=== PATIENT | female | born 1960 | race Caucasian/White ===

== ENCOUNTER 2021-09-03 08:09 | Outpatient (REF) | payer BC, SELFPAY ==
[2021-09-03 08:57] LABS: Hematocrit 42.3 % (37.0-47.0); Hemoglobin 13.4 g/dl (12.0-16.0); Mean Corpuscular HGB Conc 31.7 g/dl (31.0-35.0); Mean Corpuscular Hemoglobin 28.1 pg (27.0-33.0); Mean Corpuscular Volume 88.7 fL (80.0-98.0); Mean Platelet Volume 9.5 fL (9.4-12.3); Platelet Count 278 X10*3/uL (160-400); Red Blood Count 4.77 X10*6/uL (4.20-5.50); Red Cell Distribution Width 12.6 % (11.0-16.0); White Blood Count 7.3 X10*3/uL (4.8-10.8)
[2021-09-03 09:16] LABS: Alanine Aminotransferase 21 U/L (0-31); Albumin Level 3.9 g/dL (3.5-5.0); Alkaline Phosphatase 96 U/L (39-117); Anion Gap 13 (12-20); Aspartate Amino Transferase 24 U/L (5-31); Bilirubin Total 0.5 mg/dL (0.0-1.0); Blood Urea Nitrogen 10 mg/dL (9-16); Calcium 8.9 mg/dL (8.4-10.2); Carbon Dioxide 26 mmol/L (22-29); Chloride 107 mmol/L (96-108); Cholesterol 215 mg/dL; Estimated Glomerular Filt Rate > 60; Glucose Fasting 103 mg/dL (60-99); HDL Cholesterol 41 mg/dL; LDL Cholesterol Calculated 124 mg/dl; Potassium 4.2 mmol/L (3.3-5.1); Sodium 142 mmol/L (135-145); Total Protein 7.3 g/dL (6.5-8.0); Triglycerides 254 mg/dL
[2021-09-03 09:40] LABS: TSH reflex Free T4 9.16 uIU/mL (0.32-4.0)
[2021-09-03 10:27] LABS: Free T4 (Free Thyroxine) 0.73 ng/dL (0.71-1.85)
== END 2021-09-03 08:10 | disposition home or self-care (01) ==
LOC: HO.LAB 08:09
PROVIDERS: PCP Hospitalist; Visit Provider Hospitalist
DX: Z00.00 Encounter for general adult medical examination without abnormal findings (principal)
CPT/HCPCS: 36415; 80053; 80061; 84439; 84443; 85027

== ENCOUNTER 2021-09-16 18:04 | Outpatient (REF) | payer BC, SELFPAY | END 2021-09-16 18:05 | disposition home or self-care (01) | LOC: HO.LNP 18:04 | PROVIDERS: Visit Provider Hospitalist | DX: R82.71 Bacteriuria (principal) | CPT/HCPCS: 87086 ==

== ENCOUNTER 2022-02-14 10:19 | Outpatient (REF) | payer BC, SELFPAY ==
[2022-02-14 14:06] LABS: MANUAL DIFF FLAG NO
[2022-02-14 14:14] LABS: Basophils Absolute Auto 0.1 X10*3/uL (0.0-0.2); Basophils Percent Auto 0.8 % (0-2); Eosinophils Absolute Auto 0.4 X10*3/uL (0.0-0.4); Eosinophils Percent Auto 4.9 % (0-4); Hematocrit 41.8 % (37.0-47.0); Hemoglobin 13.1 g/dl (12.0-16.0); Imm Gran Abs Auto 0.04 X10*3/uL (0.00-0.03); Imm Gran Pct Auto 0.5 % (0.0-0.4); Lymphocytes Absolute Auto 2.3 X10*3/uL (1.2-4.9); Lymphocytes Percent Auto 28.5 % (20-40); Mean Corpuscular HGB Conc 31.3 g/dl (31.0-35.0); Mean Corpuscular Hemoglobin 28.5 pg (27.0-33.0); Mean Corpuscular Volume 90.9 fL (80.0-98.0); Mean Platelet Volume 10.2 fL (9.4-12.3); Monocytes Absolute Auto 0.4 X10*3/uL (0.1-1.2); Monocytes Percent Auto 5.4 % (2-11); Neutrophils Absolute Auto 4.8 x10*3/uL (2.0-8.3); Neutrophils Percent Auto 59.9 % (45-73); Platelet Count 318 X10*3/uL (160-400); Red Cell Distribution Width 12.9 % (11.0-16.0); White Blood Count 7.9 X10*3/uL (4.8-10.8)
[2022-02-14 14:22] LABS: D Dimer High Sensitivity 212 NG/ML
== END 2022-02-14 10:20 | disposition home or self-care (01) ==
LOC: HO.WFDLDS 10:19
PROVIDERS: Visit Provider Family Medicine
DX: Z00.00 Encounter for general adult medical examination without abnormal findings (principal); M79.89 Other specified soft tissue disorders
CPT/HCPCS: 36415; 85025; 85379

== ENCOUNTER 2022-02-15 08:05 | Outpatient (REF) | payer BC, SELFPAY ==
--- NOTE | ~2022-02-15 | US_ITS ---
EXAMINATION: US VENOUS ULTRASOUND WITH DOPPLER LOWER EXTREMITY, RIGHT CLINICAL INFORMATION: Right lower extremity swelling. Evaluate for Alvarez's cyst, deep vein thrombosis, effusion. COMPARISON: None TECHNIQUE: Ultrasound of the right-sided deep veins is performed from the hip to the calf with compression sonography and color and pulse Doppler assessment. Spectral analysis with color-flow imaging is performed. FINDINGS: The common femoral vein is compressible and exhibits a normal phasic waveform; this suggests that the iliac veins are widely patent above. Within the proximal thigh, the visualized profunda femoris vein is normal. The examined greater saphenous vein and saphenofemoral junction are normal. Superficial femoral vein is patent in the proximal, mid and distal thigh. Popliteal vein is normal to the level of the trifurcation. On compression ye scale and color Doppler images, the visualized posterior tibial and peroneal veins are normal. No evidence of Alvarez's cyst. Small joint effusion is visualized. If deemed clinically appropriate, pursue radiographic evaluation of the knee. US/US venous duplex LE RT IMPRESSION: * No evidence of deep vein thrombosis in the right lower extremity. * A small right knee joint effusion is visualized.
== END 2022-02-15 08:06 | disposition home or self-care (01) ==
LOC: HO.US 08:05
PROVIDERS: PCP Hospitalist; Visit Provider Family Medicine
DX: R60.0 Localized edema (principal); M79.89 Other specified soft tissue disorders
CPT/HCPCS: 93971

== ENCOUNTER 2022-04-04 07:25 | Outpatient (REF) | payer BC, SELFPAY ==
--- NOTE | ~2022-04-04 | XR_ITS ---
EXAMINATION: XR BILATERAL KNEE AP STANDING. XR RIGHT KNEE 2 VIEWS. CLINICAL INFORMATION: Right knee pain. COMPARISON: None. TECHNIQUE: AP bilateral knee standing 1 view. Right knee 2 views. FINDINGS: AP bilateral knee: There is a mild reduction in medial compartment joint space of both knees. The lateral compartment joint space is normal. No visible acute fracture or dislocation are seen. RIGHT KNEE: There is a moderate anterior superior patellar enthesophyte. There is mild suprapatellar joint effusion. No loose bodies or bony erosive changes are seen. The soft tissues are normal. XR/XR knee standing BI IMPRESSION: Mild suprapatellar joint effusion with a moderate size anterior suprapatella enthesophyte. There is mild suprapatellar joint effusion. There is mild degenerative arthritic changes in the medial compartment of both knees on AP standing views.
--- NOTE | ~2022-04-04 | XR_ITS ---
EXAMINATION: XR BILATERAL KNEE AP STANDING. XR RIGHT KNEE 2 VIEWS. CLINICAL INFORMATION: Right knee pain. COMPARISON: None. TECHNIQUE: AP bilateral knee standing 1 view. Right knee 2 views. FINDINGS: AP bilateral knee: There is a mild reduction in medial compartment joint space of both knees. The lateral compartment joint space is normal. No visible acute fracture or dislocation are seen. RIGHT KNEE: There is a moderate anterior superior patellar enthesophyte. There is mild suprapatellar joint effusion. No loose bodies or bony erosive changes are seen. The soft tissues are normal. XR/XR knee RT 2V IMPRESSION: Mild suprapatellar joint effusion with a moderate size anterior suprapatella enthesophyte. There is mild suprapatellar joint effusion. There is mild degenerative arthritic changes in the medial compartment of both knees on AP standing views.
== END 2022-04-04 07:26 | disposition home or self-care (01) ==
LOC: HO.HOSX 07:25
PROVIDERS: Visit Provider Physician Assistant
DX: M17.11 Unilateral primary osteoarthritis, right knee (principal)
CPT/HCPCS: 20610; 73560; 73565; J1040

== ENCOUNTER 2022-09-02 11:35 | Outpatient (REF) | payer BC, SELFPAY | END 2022-09-02 11:36 | disposition home or self-care (01) | LOC: HO.LNP 11:35 | PROVIDERS: Visit Provider Hospitalist | DX: R82.90 Unspecified abnormal findings in urine (principal) | CPT/HCPCS: 87086 ==

== ENCOUNTER → 2022-09-18 15:10 | Outpatient (BNVA) | payer BC, SELFPAY | PROVIDERS: PCP Hospitalist; Visit Provider Physician Assistant | DX: M17.11 Unilateral primary osteoarthritis, right knee (principal) | CPT/HCPCS: 20610; J1040 ==

== ENCOUNTER 2022-09-23 15:42 | Outpatient (REF) | payer BC, SELFPAY ==
--- NOTE | ~2022-09-23 | MM_ITS ---
EXAMINATION: MM SCREENING DIGITAL BREAST TOMOSYNTHESIS, BILATERAL CLINICAL INFORMATION: Screening. Asymptomatic. The lifetime risk of breast cancer based on the Tyrer-Cuzick Model is 7.5%. COMPARISON: Mammography: August 25, 2018 and studies dating back to June 11, 2010 TECHNIQUE: Digital breast tomosynthesis is performed in both the craniocaudal and mediolateral oblique views along with computer-aided detection (CAD). Synthesized 2D images are generated from the tomosynthesis. FINDINGS: The breasts are almost entirely fatty (ACR BI-RADS breast composition Category a). There are no significant masses, abnormal calcifications, or other abnormalities. MM/MM tomosynthesis screening BI IMPRESSION: No significant changes from prior exam. ASSESSMENT: BI-RADS 1: Negative RECOMMENDATION: Routine annual mammography screening. This patient's information was entered into a reminder system with a target due date for their next mammogram.
== END 2022-09-23 15:43 | disposition home or self-care (01) ==
LOC: HO.MAMMO 15:42
PROVIDERS: PCP Hospitalist; Visit Provider Hospitalist
DX: Z12.31 Encounter for screening mammogram for malignant neoplasm of breast (principal)
CPT/HCPCS: 77063; 77067

== ENCOUNTER 2023-09-29 15:55 | Outpatient (REF) | payer BC, SELFPAY ==
--- NOTE | ~2023-09-29 | MM_ITS ---
EXAMINATION: MM SCREENING DIGITAL BREAST TOMOSYNTHESIS, BILATERAL CLINICAL INFORMATION: Screening. Asymptomatic. COMPARISON: Mammography: This study is compared with prior exams dating back to 2018. TECHNIQUE: Digital breast tomosynthesis is performed in both the craniocaudal and mediolateral oblique views along with computer-aided detection (CAD). Synthesized 2D images are generated from the tomosynthesis. FINDINGS: The breasts are almost entirely fatty (ACR BI-RADS breast composition Category a). There is a focal asymmetry in the lateral aspect of the left breast. Additional mammographic and targeted sonographic evaluation of this finding is advised. In the right breast, there are no significant masses, abnormal calcifications, or other abnormalities. MM/MM tomosynthesis screening BI IMPRESSION: Focal asymmetry of the left breast warrants additional mammographic and targeted sonographic evaluation. No mammographic signs of malignancy right breast. ASSESSMENT: BI-RADS BI-RADS 0 - Incomplete: Needs additional Imaging. RECOMMENDATION: 1. Additional views of the left breast 2. Targeted ultrasound if warranted after review of the additional views. 3. Radiology department staff will contact the patient for additional imaging. Additional Imaging required This examination should not preclude the clinical evaluation of a suspicious palpable abnormality. This patient's information was entered into a reminder system with a target due date for their next mammogram.
== END 2023-09-29 15:56 | disposition home or self-care (01) ==
LOC: HO.MAMMO 15:55
PROVIDERS: PCP Family Medicine; Visit Provider Hospitalist
DX: Z12.31 Encounter for screening mammogram for malignant neoplasm of breast (principal)
CPT/HCPCS: 77063; 77067

== ENCOUNTER → 2023-09-29 16:00 | Outpatient (BNV) | payer BC, SELFPAY | PROVIDERS: PCP Family Medicine; Visit Provider Radiology Diagnostic Radiology | DX: Z12.31 Encounter for screening mammogram for malignant neoplasm of breast (principal) | CPT/HCPCS: 77063; 77067 ==

== ENCOUNTER 2023-10-01 08:17 | Outpatient (AMB) | payer BC, SELFPAY ==
[2023-10-01 08:22] VITALS: BP 144/68; PULSE 76; RESP 13; O2SAT 97; BMI 39.8
--- NOTE | 2023-10-01 08:22 | A.OFFPC_ITS ---
Vital Signs 10/01/23 08:22 10/01/23 08:50 Height 5 ft 3 in Weight 224 lb 8 oz BMI 39.8 BP 144/68 H 156/80 H Blood Pressure Location Rt brachial Lt brachial Position Sitting Sitting Respiration 13 Pulse 76 Pulse Source Pulse Oximeter Pulse Oximetry (%) 97 Oxygen Delivery Method Room Air Intake Visit Reasons: Annual physical-transfer of care Renate Intake Note: Patient is here for a physical. Patient reports she does not have any concerns at this time. Patient reports she needs refill on levothyroxine and meloxicam. Application Chemist Required: No Accompanied by: Self / Same As Patient Allergies No Known Allergies [No Known Allergies*] Allergy (Verified 10/01/23 08:43) Medication List - Last Reconciled 10/01/23 by Lacie Jin CNP atenolol 100 mg PO QAM levothyroxine 100 mcg PO DAILY meloxicam 15 mg PO DAILY Tobacco use date assessed: 10/01/23 Fall risk assessment: No Falls in past year Last assessed Fall Risk: 10/01/23 Dental Screening Dental Screen Date: 10/01/23 Did you have a dental visit in the last 12 months?: Yes Did you have a dental problem in the last 6 months where you did not have access to dental care?: No Was dental information given to patient?: Patient has dentist HPI HPI Comments History of Present Illness Details 63-year-old female presents for transfer of care Her former PCP is REJI who is no longer with the practice. Her last office visit was in January 2023. Her last routine blood work was over a year ago. She has history of hypertension, hypothyroidism, osteoarthritis of right knee, and obesity She is on atenolol, levothyroxine, meloxicam. She admits to taking her medications as prescribed without adverse reactions She notes that she monitors her BP at home and averages in the 120s/70s She notes that she took her atenolol at 7:30am today She notes that she take meloxicam as needed for right knee pain with controlled symptoms She denies acute symptoms at this time She notes that she has been making healthy dietary choices. However, she has not been exercising. She is worried that exercise may aggravate her right knee pain Last mammogram was on 09/2023: result pending Last colonoscopy was over 10 years ago: normal Last pap smear was 3 years ago: normal Shingrix vaccines: up-to-date Flu vaccine: up-to-date [facility] Medical History No pertinent past medical history Surgical History History of lumpectomy of left breast No pertinent past surgical history Family History Other Substance use disorder Social History (Updated 10/01/23 @ 08:37 by Ashlie Yoder [facility]) Household Members: Spouse Housing: House Alcohol intake: never Patient Tobacco Use Status: Former Tobacco user Years Smoked: 8 e-Cigarette/Vaping Use: Never Used Second Hand Smoke Exposure: No service: No Current occupational status: employed Current occupation: [employer] Cognitive needs: No Hearing needs: No Vision needs: Yes (Reading glasses) Questionnaire PHQ-9 Over the last 2 weeks, how often have you been bothered by any of the following problems? 1. Little interest or pleasure in doing things: not at all 2. Feeling down, depressed, or hopeless: not at all 3. Trouble falling or staying asleep, or sleeping too much: not at all 4. Feeling tired or having little energy: not at all 5. Poor appetite or overeating: not at all 6. Feeling bad about yourself - or that you are a failure or have let yourself or your family down: not at all 7. Trouble concentrating on things, such as reading the newspaper or watching television: not at all 8. Moving or speaking so slowly that other people could have noticed. Or the opposite - being so fidgety or restless that you have been moving around a lot more than usual: not at all 9. Thoughts that you would be better off or of hurting yourself in some way: not at all Total score: 0 Depression Screening Interpretation: Negative Depression Screening Done: Yes 82608 - PHQ-9 Billing: Yes Source: Developed by Drs. Tyler Peters, Tiera Frederick, Rishi Teran and colleagues, with an educational jose manuel from [email or web address]. Thrive Questionnaire Date Thrive assessed: 10/01/23 I am a: Patient What is your living situation today?: I have a steady place to live Within the past 12 months, did the food you bought not last and you didn't have the money to get more?: Never true Within the past 12 months, did you worry whether your food would run out before you got money to buy more?: Never true Do you have trouble paying for medicines?: No Do you have trouble getting transportation to medical appointments?: No Do you have trouble paying your heating and electricity bill?: No Do you have trouble taking care of your child, family member or friend?: No Do you have trouble with day-to-day activities such as bathing, preparing meals, shopping, managing finances, etc.?: No Are you currently unemployed and looking for a job?: No Are you interested in more education?: No Please select the resources that you would like help with: None Currently or been in a relationship where the following occur: no concerns reported AUDIT C Alcohol Use Questionnaire (AUDIT-C) 1. How often do you have a drink containing alcohol?: Never 3. How often do you have six or more drinks on one occasion?: Never Total Score: 0 BABITA-7 AMB Questionnaire BABITA-7 Date BABITA - 7 assessed: 10/01/23 Feeling nervous, anxious, or on edge: 0 = Not at all Not being able to stop or control worryin = Not at all Worrying too much about different things: 0 = Not at all Trouble relaxin = Not at all Being so restless that it is hard to sit still: 0 = Not at all Becoming easily annoyed or irritable: 0 = Not at all Feeling afraid as if something awful might happen: 0 = Not at all Total BABITA-7 score (0-4 normal; 5-9 mild; 10-14 moderate; 15-21 severe): 0 Source: Developed by Drs. Tyler Peters, Tiera Frederick, Rishi Teran and colleagues, with an educational jose manuel from [email or web address]. BABITA-7 Assessment Billing BABITA-7 Assessment Tool: BABITA-7 Assessment 91730 Review of Systems Const Details: Denies chills, Denies fatigue, Denies fever(s), Denies headache(s) and Denies weakness HEENT Denies change in vision, Denies dizziness, Denies headache(s), Denies hearing loss, Denies nasal congestion, Denies sinus pain, Denies sinus pressure and Denies sore throat Card Denies chest pain, Denies lightheadedness, Denies dyspnea and Denies other (palpitations) Resp Denies cough, Denies dyspnea and Denies wheezing GI Denies abdominal pain, Denies melena, Denies hematochezia, Denies change in bowel habits, Denies dyspepsia and Denies nausea Denies hematuria and Denies dysuria Musc Denies abnormal gait, Denies myalgias, Denies arthralgias, Denies numbness and Denies tingling Skin/Breast Denies rash, Denies unusual bruising and Denies wounds Neuro Denies abnormal gait, Denies dizziness, Denies headache(s), Denies memory loss, Denies numbness, Denies Sensory deficit (Neuro), Denies tingling and Denies weakness Psych Denies anxiety, Denies depression and Denies memory loss Endo Denies cold intolerance, Denies fatigue, Denies heat intolerance, Denies polydipsia and Denies polyuria Vargas/Lymph Denies easy bleeding and Denies easy bruising Aller/Immun Denies wheezing Physical exam (Primary Care) Vital Signs: Last Vital Signs Pulse 76 10/01/23 08:22 Resp 13 10/01/23 08:22 BP 144/68 H 10/01/23 08:22 Pulse Ox 97 10/01/23 08:22 Oxygen Delivery Method Room Air 10/01/23 08:22 BMI result Body Mass Index 39.8 Tobacco/Smoking Status: Tobacco use Status Tobacco use date assessed 10/01/23 10/01/23 08:38 Patient Tobacco Use Status Former Tobacco user 10/01/23 08:38 e-Cigarette/Vaping Use Never Used 10/01/23 08:38 PHQ-9: PHQ-9 Score PHQ-9: Total score 0 10/01/23 08:38 Depression Screening Interpretation: Negative Thrive Assessment: Date of Thrive Assessment Date Thrive assessed 10/01/23 10/01/23 08:38 Currently or been in a relationship where the following occur: no concerns reported Const Other: General: no acute distress, well developed, alert and awake Nutritional Appearance: well nourished Orientation/consciousness: patient oriented x3 HENMT Head: Yes normocephalic and Yes atraumatic Ears: hearing grossly normal bilaterally and TM's normal bilaterally General nose exam: Normal external nose present and Normal nares present Mouth: Normal oral and palatal mucosa present and moist mucous membranes Teeth and gingiva: dentition normal Throat: Yes oropharynx normal Eyes Pupils: Equal, round and reactive pupils present and Pupil accommodation reflex normal EOM: EOMs intact bilaterally Neck Neck: Yes normal visual inspection, Yes no lymphadenopathy and Yes trachea midline Thyroid: Thyroid normal Carotids: no bruits Lymphatic: no lymphadenopathy noted Chest Chest palpation & inspection: normal inspection of the chest Resp Effort & Inspection: normal respiratory effort Auscultation: clear to auscultation bilaterally Cardio Rate: regular rate Rhythm: regular rhythm Heart sounds: S1 normal heart sound present, S2 normal heart sound present, no gallops, no murmurs and no rubs Bruits: no abdominal aortic bruits and no carotid bruits GI Palpation (GI): No Abdominal aortic bruit present, Soft to palpation, nontender, No hepatosplenomegaly present and No Rebound tenderness present Auscultation: normal bowel sounds General: Yes no CVA tenderness Back/Spine/Pelvis Back: no CVA tenderness Cervical Spine: cervical ROM normal and No Cervical spine tenderness Thoracic/Lumbar Spine: thoraco-lumbar ROM normal, No pain with thoraco-lumbar ROM, No thoracic spinal tenderness and No lumbar spinal tenderness Skin General: warm and dry. Normal skin color. Normal skin turgor Lesions: Moles and skin tags to face and neck Rashes: no rashes Trauma: no lacerations or abrasions Wounds: no wounds Nails: normal Neuro General: patient oriented x3, gait normal and CN's II-XI intact bilaterally Cranial nerves: Yes Equal, round and reactive pupils present Cognition (Neuro): normal cognition Gait exam (Neuro): Normal gait present Motor exam (neuro): 5/5 motor strength present throughout Sensory Exam: No Sensory deficit (Neuro) Deep tendon reflexes (DTR's): Right patellar reflex intensity grade: 2+ and Left patellar reflex intensity grade: 2+ Extrem General: Yes normal to inspection, No edema and No calf tenderness Psych Appearance: grossly normal Affect: normal affect Attitude: cooperative Thought process: Normal thought process present Assessment and Plan Assessment & Plan (1) Normal physical exam: Code(s): Z00.00 - Encounter for general adult medical examination without abnormal findings Plan: No significant physical restrictions or limitations noted Advised to get fasting blood work done and follow-up in 1 month for hypertension, hypothyroidism, and labs review Return sooner with symptoms or concerns Verbalized understanding and agreed with treatment plan (2) Essential hypertension: Code(s): I10 - Essential (primary) hypertension Plan: Resting blood pressure is 156/80, above goal of less than 140/90 She reports average home blood pressure readings between 180s/70s Admits to taking atenolol as prescribed and maintaining a low-salt diet No acute symptoms Likely orthostatic hypertension Continue current treatment regimen Low-sodium diet encouraged Follow-up for nurse visit in 1 week for blood pressure check and PCP in 1 month Verbalized understanding and agreed with treatment plan (3) Osteoarthritis of right knee: Code(s): M17.11 - Unilateral primary osteoarthritis, right knee Plan: No acute symptoms Naproxen ordered. Take as prescribed Warm/cool compresses encouraged Follow-up with symptoms or concerns Verbalized understanding and agreed with treatment plan (4) Laboratory tests ordered as part of a complete physical exam (CPE): Code(s): Z00.00 - Encounter for general adult medical examination without abnormal findings Plan: Fasting labs ordered as part of a complete physical exam. Advised to fast for at least 10 hours before getting labs drawn. May drink water Verbalized understanding and agreed with treatment plan. (5) Obesity (BMI 30-39.9): Code(s): E66.9 - Obesity, unspecified Plan: She has been making healthy dietary choices. However, she has not been exercising She currently weighs 224 lb, BMI is 39.8 Healthy diet and routine exercise encouraged Referred to client service consultant/dietitian Follow-up with symptoms or concerns Verbalized understanding and agreed with treatment (6) Colon cancer screening: Code(s): Z12.11 - Encounter for screening for malignant neoplasm of colon Plan: Last colonoscopy was over 10 years ago: normal [place] [facility] [place] (7) Pap smear for cervical cancer screening: Code(s): Z12.4 - Encounter for screening for malignant neoplasm of cervix Plan: Last pap smear was 3 years ago: normal Referred [place] [facility] [place] Orders: Orders Lipid Panel Today Z00.00 - Encounter for general adult medical examination without abnormal findings Complete Blood Count Auto Diff Today Z00.00 - Encounter for general adult medical examination without abnormal findings Comprehensive Lawrence. Panel Fast Today Z00.00 - Encounter for general adult medical examination without abnormal findings TSH reflex Free T4 Today Z00.00 - Encounter for general adult medical examination without abnormal findings UA CC w/rflx Micro + Cult Today Z00.00 - Encounter for general adult medical examination without abnormal findings Referrals Gastroenterology Referral Z12.11 - Encounter for screening for malignant neoplasm of colon [employer] Referral Z12.4 - Encounter for screening for malignant neoplasm of cervix Nutrition/Dietitian Referral E66.9 - Obesity, unspecified Medications: New naproxen 500 mg PO BID PRN 60 tabs 2RF pain Refilled levothyroxine 100 mcg PO DAILY 1 tab 0RF E03.9 - Hypothyroidism, unspecified Discontinued meloxicam Discontinued Reason: Doctor's Order 15 mg PO DAILY 30 tabs 3RF M17.11 - Unilateral primary osteoarthritis, right knee Coding Level of Care Code Est Pt Prev Care 40-64y(62928) Diagnoses Normal physical exam Z00.00 Essential hypertension I10 Osteoarthritis of right knee M17.11 Laboratory tests ordered as part of a complete physical exam (CPE) Z00.00 Obesity (BMI 30-39.9) E66.9 Colon cancer screening Z12.11 Pap smear for cervical cancer screening Z12.4 Additional Codes BABITA-7 Assessment Billing - BABITA-7 Assessment Tool: BABITA-7 Assessment [id number] ([id number])
[2023-10-01 08:50] VITALS: BP 156/80
== END 2023-10-01 09:11 | disposition home or self-care (01) ==
PROVIDERS: PCP Nurse Practitioner Family; Visit Provider Nurse Practitioner Family
DX: Z00.00 Encounter for general adult medical examination without abnormal findings (principal); I10 Essential (primary) hypertension; Z68.39 Body mass index [BMI] 39.0-39.9, adult; E66.9 Obesity, unspecified; M17.11 Unilateral primary osteoarthritis, right knee; Z12.11 Encounter for screening for malignant neoplasm of colon
CPT/HCPCS: 99396

== ENCOUNTER 2023-10-01 09:13 | Outpatient (REF) | payer BC, SELFPAY ==
[2023-10-01 11:36] LABS: MANUAL DIFF FLAG NO
[2023-10-01 11:59] LABS: Basophils Absolute Auto 0.1 X10*3/uL (0.0-0.2); Basophils Percent Auto 0.8 % (0-2); Eosinophils Absolute Auto 0.3 X10*3/uL (0.0-0.4); Eosinophils Percent Auto 3.4 % (0-4); Imm Gran Abs Auto 0.02 X10*3/uL (0.00-0.03); Imm Gran Pct Auto 0.3 % (0.0-0.4); Lymphocytes Absolute Auto 2.2 X10*3/uL (1.2-4.9); Lymphocytes Percent Auto 28.8 % (20-40); Mean Corpuscular HGB Conc 31.1 g/dl (31.0-35.0); Mean Corpuscular Hemoglobin 27.8 pg (27.0-33.0); Mean Corpuscular Volume 89.5 fL (80.0-98.0); Mean Platelet Volume 9.7 fL (9.4-12.3); Monocytes Absolute Auto 0.4 X10*3/uL (0.1-1.2); Monocytes Percent Auto 4.8 % (2-11); Neutrophils Absolute Auto 4.7 x10*3/uL (2.0-8.3); Neutrophils Percent Auto 61.9 % (45-73); Platelet Count 301 X10*3/uL (160-400); Red Blood Count 5.03 X10*6/uL (4.20-5.50); Red Cell Distribution Width 13.2 % (11.0-16.0); White Blood Count 7.6 X10*3/uL (4.8-10.8)
[2023-10-01 12:10] LABS: Alanine Aminotransferase 18 U/L (0-31); Albumin Level 4.1 g/dL (3.5-5.0); Alkaline Phosphatase 99 U/L (39-117); Anion Gap 12 (12-20); Aspartate Amino Transferase 25 U/L (5-31); Bilirubin Total 0.6 mg/dL (0.0-1.0); Blood Urea Nitrogen 14 mg/dL (9-16); Calcium 9.5 mg/dL (8.4-10.2); Carbon Dioxide 28 mmol/L (22-29); Chloride 104 mmol/L (96-108); Cholesterol 215 mg/dL (<200); Estimated Glomerular Filt Rate > 60; Glucose Fasting 114 mg/dL (60-99); HDL Cholesterol 43 mg/dL (>40); LDL Cholesterol Calculated 130 mg/dL (<100); Potassium 4.7 mmol/L (3.3-5.1); Sodium 139 mmol/L (135-145); Total Protein 8.1 g/dL (6.5-8.0); Triglycerides 211 mg/dL (<150)
[2023-10-01 12:32] LABS: TSH reflex Free T4 1.92 uIU/mL (0.32-4.0)
[2023-10-01 12:50] LABS: Appearance Urine Clear; Color Urine Yellow; Glucose Urine UA Negative (Negative); Leukocyte Esterase Urine Negative (Negative); Nitrite Urine Negative (Negative); PH 5.5 (5.0-9.0); Specific Gravity - Urine 1.015 (1.005-1.025); Urine Blood Negative (Negative); Urine Ketones Negative (Negative); Urine Protein Negative (Neg-Trace)
== END 2023-10-01 09:14 | disposition home or self-care (01) ==
LOC: HO.WFDLDS 09:13
PROVIDERS: Visit Provider Nurse Practitioner Family
DX: Z00.00 Encounter for general adult medical examination without abnormal findings (principal)
CPT/HCPCS: 36415; 80053; 80061; 81003; 84443; 85025

== ENCOUNTER 2023-11-03 10:47 | Outpatient (REF) | payer BC, SELFPAY ==
--- NOTE | ~2023-11-03 | MM_ITS ---
EXAMINATION: MM DIAGNOSTIC DIGITAL BREAST TOMOSYNTHESIS, LEFT CLINICAL INFORMATION: The patient presents for further evaluation of a laterally located focal asymmetry is noted on the screening mammogram from 09/29/2023. COMPARISON: Mammography: This study is compared with the prior mammograms dating back to 2018. TECHNIQUE: Digital breast tomosynthesis is performed. 2D images are generated from the tomosynthesis. The following views are obtained: MLO spot compression of the left breast and a full lateral view of the left breast were obtained. A scar marker was placed on the patient's surgical scar. FINDINGS: There are scattered areas of fibroglandular density (ACR BI-RADS breast composition Category b). Patient's surgical scar in the upper outer quadrant of the left breast has been marked with a skin scar marker. Additional mammographic imaging shows the finding to become considerably less dense and represent a small area of scar formation. There are no mammographic signs of malignancy at the current time. MM/MM tomosynthesis added views L IMPRESSION: No mammographic evidence of malignancy. ASSESSMENT: BI-RADS BI-RADS 2 - Benign Findings RECOMMENDATION: 1 year F/U Results were provided to the patient at time of visit by the technologist. This patient's information was entered into a reminder system with a target due date for their next mammogram.
== END 2023-11-03 10:48 | disposition home or self-care (01) ==
LOC: HO.MAMMO 10:47
PROVIDERS: PCP Family Medicine; Visit Provider Family Medicine
DX: N64.89 Other specified disorders of breast (principal)
CPT/HCPCS: 77061; 77065

== ENCOUNTER → 2023-11-03 11:00 | Outpatient (BNV) | payer BC, SELFPAY | PROVIDERS: PCP Family Medicine; Visit Provider Radiology Diagnostic Radiology | DX: R92.8 Other abnormal and inconclusive findings on diagnostic imaging of breast (principal) | CPT/HCPCS: 77061; 77065 ==

== ENCOUNTER 2023-12-23 14:45 | Outpatient (AMB) | payer BC, SELFPAY ==
--- NOTE | 2023-12-23 14:50 | MHC.OFFVIS ---
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 She is doing well with concerns: Reports chronic pelvic pain(more so on the right side, and and sometimes down the leg) for many years and was told years ago there was not much that would could be done for her by 2 separate doctors. History of uterine fibroids based on review of [facility] records. She denies any urinary symptoms, constipation or diarrhea. Attempting to eat a healthy diet, eats on the go, takes calcium and vitamin D and stays active with work at [employer]. Currently sexually active. Denies any vaginal dryness or irritation. Last pap smear; 2018. Last mammogram; 2023. Colonoscopy is booked. Denies any family history of breast, ovarian or colon cancer. [facility] Medical History (Updated 12/23/23 @ 14:54 by LUPILLO Barbour) Arthritis Hypothyroidism (acquired) Essential hypertension No pertinent past medical history Surgical History (Updated 12/23/23 @ 15:14 by Risa Daly CNM) No pertinent past surgical history History of lumpectomy of left breast Family History Other Substance use disorder Social History (Updated 12/23/23 @ 14:55 by LUPILLO Barbour) Household Members: Spouse Housing: House Alcohol intake: never Patient Tobacco Use Status: Former Tobacco user Years Smoked: 8 e-Cigarette/Vaping Use: Never Used Second Hand Smoke Exposure: No service: No Current occupational status: employed 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 Sexually active: Yes Sexual orientation: Straight/Heterosexual Gender identity: Female Cognitive needs: No Hearing needs: No Vision needs: Yes (Reading glasses) Female Reproductive History Menstrual Menopause type: natural Total pregnancies: 1 Full term: 1 Number of Living Children: 1 Date of last pap smear: 06/28/18 (neg pap and hpv) Date of Mammogram: 09/29/23 (Birad 0) Review of Systems Const All systems reviewed & are unremarkable except as noted in HPI and below Reports as per HPI Eyes Reports no additional complaints ENT Reports no additional complaints Card Reports no additional complaints Resp Reports no additional complaints GI Reports as per HPI and Reports no additional complaints Reports as per HPI Musc Reports no additional complaints Skin/Breast Reports as per HPI Neuro Reports no additional complaints Psych Reports no additional complaints Endo Reports no additional complaints Vargas/Lymph Reports no additional complaints Aller/Immun Reports no additional complaints Physical Exam Vital Signs: Last Vital Signs BP 140/80 H 12/23/23 14:51 BMI result Body Mass Index 40.4 Const General: cooperative, healthy appearing, no acute distress, well developed and alert Orientation/consciousness: patient oriented x3 HEENT Head: Yes normal to inspection Eyes General: appearance normal, both eyes and all related structures Neck Neck: Yes normal visual inspection Thyroid: Thyroid normal Chest Chest palpation & inspection: normal inspection of the chest and other (no puckering, dimpling, peau de orange, retraction, discharge, masses) Breast/axilla inspection: normal inspection of the breasts Breast/axilla palpation: normal palpation of the breasts Resp Effort & Inspection: normal respiratory effort GI Inspection: Yes normal to inspection and Yes obesity Palpation (GI): Soft to palpation Rectal Exam - Female: deferred General: Yes bladder normal to palpation External Female Exam: normal external appearance and normal appearance of the urethra Speculum Exam - Vagina: normal appearance of the vagina, normal palpation, normal vaginal discharge and vagina atrophic Speculum Exam - Cervix: normal appearance of the cervix, normal palpation and Other cervical findings present (Bled with Pap) Bimanual exam- vagina & uterus: normal bimanual exam, normal palpation, uterine size normal, bladder normal to palpation, normal palpation and non-tender Bimanual Exam- Adnexa, other: no masses Skin General skin exam: no rashes or lesions noted Rashes: no rashes Neuro General: patient oriented x3 Cognition (Neuro): normal cognition Extrem General: Yes normal to inspection Psych Attitude: cooperative Thought process: Normal thought process present Assessment & Plan Assessment & Plan (1) Encounter for well woman exam with routine gynecological exam: Code(s): Z01.419 - Encounter for gynecological examination (general) (routine) without abnormal findings (2) Pelvic pain: Code(s): R10.2 - Pelvic and perineal pain Plan Discussed: Current recommendations for pap smears per ASCCP guidelines. Breast awareness, periodic self breast exams and yearly mammogram. Maintain a healthy lifestyle, well balanced diet including Calcium 1,200 mg and Vitamin D 600 IU daily, and routine exercise. Plan ultrasound of the pelvis in a follow-up in the office. Contact the office with any postmenopausal bleeding. Patient verbalizes understanding and agrees to the plan of care. She was given opportunity to ask questions and all questions were answered to the best of my ability. 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 This note is constructed using voice recognition software. While every effort has been made to ensure accuracy, deep fat cook fry errors may have been included. Orders: Orders US pelvic and transvaginal Today R10.2 - Pelvic and perineal pain Pap Smear Today Z01.419 - Encounter for gynecological examination (general) (routine) without abnormal findings Coding Level of Care Code New Pt Prev Care 40-64y(99239) Diagnoses Encounter for well woman exam with routine gynecological exam Z01.419 Pelvic pain R10.2
[2023-12-23 14:51] VITALS: BP 140/80; BMI 40.4
== END 2023-12-23 15:44 | disposition home or self-care (01) ==
PROVIDERS: PCP Internal Medicine; Visit Provider Advanced Practice Midwife
DX: Z01.419 Encounter for gynecological examination (general) (routine) without abnormal findings (principal); R10.2 Pelvic and perineal pain
CPT/HCPCS: 99386

== ENCOUNTER 2023-12-23 14:45 | Outpatient (REF) | payer BC, SELFPAY ==
[2024-01-02 09:18] LABS: HPV mRNA E6/E7 rflx Not Detected (Not Detected)
== END 2023-12-23 14:46 | disposition home or self-care (01) ==
LOC: HO.LNP 14:45
PROVIDERS: PCP Internal Medicine; Visit Provider Advanced Practice Midwife
DX: Z01.419 Encounter for gynecological examination (general) (routine) without abnormal findings (principal); Z11.51 Encounter for screening for human papillomavirus (HPV); R10.2 Pelvic and perineal pain
CPT/HCPCS: 87624; 88142

== ENCOUNTER 2024-01-26 15:23 | Outpatient (AMB) | payer BC, SELFPAY ==
--- NOTE | 2024-01-26 15:24 | A.OFFVIS_ITS ---
Intake Vital Signs 01/26/24 15:26 Height 5 ft 3 in Weight 222 lb 10.67 oz BMI 39.4 BP 144/65 H Blood Pressure Location Lt brachial Position Sitting Pulse 75 Intake Visit Reasons: Colonoscopy Screening Intake Note: Leonor presents in the office as a new patient colonoscopy screening. CC: She states that she is not having any concerns - she states that she is just due. Allergies No Known Allergies [No Known Allergies*] Allergy (Verified 01/26/24 15:27) HPI Colonoscopy Screening HPI Details 63 year old? female here today for pre c olonoscopy screening.? Patient was sent to us by her PCP.? Patient had colonoscopy in September of 2010. One tubular adenoma found. Denies any melena, hematochezia, unintentional weight loss or ribbon like stools.? Patient denies any gastrointestinal symptoms in the past or at present.? Denies any personal or family history of gastrointestinal disease, colon polyps, or cancer.? Denies history of difficulty with sedation or anesthesia in the past.? Negative for history of sleep apnea.? Denies any history of cardiac, renal, pulmonary, or hepatic disease.?? No history of infectious? diseases like hepatitis A, B, C, HIV or tuberculosis.? Patient is not on any anticoagulation therapy. 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 Sexual orientation: Straight/Heterosexual Gender identity: Female Cognitive needs: No Hearing needs: No Vision needs: Yes (Reading glasses) Review of Systems Const Denies weight gain and Denies weight loss ENT Reports no additional complaints, Denies dysphagia and Denies odynophagia Card Reports no additional complaints Resp Reports no additional complaints GI Denies abdominal pain, Denies belching, Denies melena, Denies bloating, Denies change in bowel habits, Denies dysphagia, Denies excessive flatus, Denies dyspepsia, Denies heartburn, Denies diarrhea, Denies loose stools, Denies nausea, Denies odynophagia and Denies vomiting Musc Reports no additional complaints Neuro Reports no additional complaints Psych Reports no additional complaints Endo Reports no additional complaints Physical Exam Vital Signs: Last Vital Signs Pulse 75 01/26/24 15:26 BP 144/65 H 01/26/24 15:26 BMI result Body Mass Index 39.4 Const General: healthy appearing and no acute distress Nutritional Appearance: obese Orientation/consciousness: patient oriented x3 Resp Effort & Inspection: normal respiratory effort, able to speak in complete sentences, no tracheal deviation and symmetric chest movement Auscultation: clear to auscultation bilaterally Cardio Rate: regular rate GI Inspection: Yes normal to inspection, No distended and Yes obesity Palpation (GI): Soft to palpation, not firm, nontender and No hepatosplenomegaly present Auscultation: normal bowel sounds General: Yes no CVA tenderness Back/Spine/Pelvis Back: no CVA tenderness Skin General skin exam: elasticity normal, turgor normal and dry skin Neuro General: patient oriented x3 Psych Appearance: grossly normal Mental Status: mental status grossly normal Assessment & Plan Assessment & Plan (1) Colon cancer screening: Code(s): Z12.11 - Encounter for screening for malignant neoplasm of colon Plan Patient denies any GI, cardiac or respiratory symptoms. ?Denies any issues with anesthesia in the past.? Denies any history of sleep apnea.? No history infectious diseases in the past or present.? Not on any anticoagulation therapy.? No family or personal history of colon cancer or polyps.? Patient denies melena, hematochezia, unintentional weight loss or ribbon like stools.? Discussed at length the pre-procedure,? prep, diet & medications as well as what to expect prior, during and after the procedure.?? Stressed the importance of good bowel prep. ?Recommended the use of Vaseline or Calmoseptine OTC & baby wipes with bowel movements to promote comfort.? ?Patient verbalizes understanding and agrees to plan of care.? She was given the opportunity to ask questions and all questions answered.? We will see her after the procedure.? Medications: New bisacodyl (Dulcolax (bisacodyl)) take 4 tabs at noon the day before your colonoscopy 20 mg (4 x 5 mg) PO ONCE 4 tabs 0RF 1 day Z12.11 - Encounter for screening for malignant neoplasm of colon polyethylene glycol 3350 (Miralax) As directed by gastroenterology department at [facility] 238 grams PO ONCE 238 grams 0RF Z12.11 - Encounter for screening for malignant neoplasm of colon Coding Level of Care Code New Pt Level 3 (20050) Diagnoses Colon cancer screening Z12.11 Time Spent (min) 40 Comment 30 minutes spent with patient and additional 10 minutes spent reviewing her records
[2024-01-26 15:26] VITALS: BP 144/65; PULSE 75; BMI 39.4
== END 2024-01-26 15:53 | disposition home or self-care (01) ==
PROVIDERS: PCP Family Medicine; Visit Provider Nurse Practitioner Family
DX: Z01.818 Encounter for other preprocedural examination (principal); Z12.11 Encounter for screening for malignant neoplasm of colon
CPT/HCPCS: S0285

== ENCOUNTER → 2024-01-26 15:23 | Outpatient (BNVA) | payer BC, SELFPAY | PROVIDERS: PCP Family Medicine; Visit Provider Nurse Practitioner Family ==

== ENCOUNTER 2024-05-02 09:00 | Outpatient (AMB) | payer BC, SELFPAY ==
--- NOTE | 2024-05-02 09:06 | A.OFFPC_ITS ---
Vital Signs 05/02/24 09:08 Height 5 ft 3 in Weight 229 lb BMI 40.6 BP 146/80 H Blood Pressure Location Lt brachial Position Sitting Respiration 12 Pulse 65 Pulse Source Pulse Oximeter Pulse Oximetry (%) 96 Oxygen Delivery Method Room Air Intake Visit Reasons: YU from [facility] Intake Note: Patient is here to discuss her right knee- patient is here for accommodation paperwork. Patient will be losing her job as of June 20 due to a large layoff. [employer]visor [employer] Required: No Accompanied by: Self / Same As Patient Allergies No Known Allergies [No Known Allergies*] Allergy (Verified 05/02/24 09:13) Medication List - Last Reconciled 05/02/24 by Chana Crabtree MD atenolol 100 mg PO QAM bisacodyl (Dulcolax (bisacodyl)) 20 mg (4 x 5 mg) PO ONCE 1 day levothyroxine 100 mcg PO DAILY 90 days meloxicam 15 mg PO DAILY naproxen 500 mg PO BID PRN polyethylene glycol 3350 (Miralax) 238 grams PO ONCE Tobacco use date assessed: 05/02/24 Fall risk assessment: No Falls in past year Last assessed Fall Risk: 05/02/24 Dental Screening Dental Screen Date: 05/02/24 Did you have a dental visit in the last 12 months?: Yes Did you have a dental problem in the last 6 months where you did not have access to dental care?: No Was dental information given to patient?: Patient has dentist HPI HPI Comments History of Present Illness Details 63-year-old female with a past medical h istory of right knee pain, hypertension, hypothyroid presenting for follow up CV: On atenolol. BP borderline. Plans on losing weight-goal is 20 pounds. Average BP at home 120s/70s Hypothyroid-been stable on levothyroxine MSK: she takes tylenol or meloxicam as needed for right knee pain. Can tolerate 40 h of work a week but no more due to pain Last mammogram was on 09/2023 Last colonoscopy was over 10 years ago: this is scheduled for jun Last pap smear was 3 years ago: normal Shingrix vaccines: up-to-date ROS CONSTITUTIONAL: Denies weight loss, fever and chills. HEENT: Denies changes in vision and hearing. RESPIRATORY: Denies SOB and cough. CV: Denies palpitations and CP GI: Denies abdominal pain, nausea, vomiting and diarrhea. : Denies dysuria and urinary frequency. MSK: Denies new myalgia and joint pain. SKIN: Denies rash and pruritus. NEUROLOGICAL: Denies headache PSYCHIATRIC: Denies recent changes in mood. PHYSICAL EXAM: GENERAL: Alert and oriented x 3. NAD EYES: EOMI. Anicteric. HENT: Moist mucous membranes. No scleral icterus. No cervical lymphadenopathy. LUNGS: Clear to auscultation bilaterally. CARDIOVASCULAR: Regular rate and rhythm. No murmur. No JVD. ABDOMEN: Soft, non-tender +bs EXTREMITIES: No edema. Non-tender. SKIN: No rashes or lesions. Warm. NEUROLOGIC: No focal neurological deficits. CN II-XII grossly intact PSYCHIATRIC: Cooperative. 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 1. Little interest or pleasure in doing things: not at all 2. Feeling down, depressed, or hopeless: not at all 3. Trouble falling or staying asleep, or sleeping too much: not at all 4. Feeling tired or having little energy: not at all 5. Poor appetite or overeating: not at all 6. Feeling bad about yourself - or that you are a failure or have let yourself or your family down: not at all 7. Trouble concentrating on things, such as reading the newspaper or watching television: not at all 8. Moving or speaking so slowly that other people could have noticed. Or the opposite - being so fidgety or restless that you have been moving around a lot more than usual: not at all 9. Thoughts that you would be better off or of hurting yourself in some way: not at all Total score: 0 Depression Screening Interpretation: Negative (neg) Depression Screening Done: Yes 36848 - PHQ-9 Billing: Yes Source: Developed by Drs. Tyler Peters, Tiera Frederick, Rishi Teran and colleagues, with an educational jose manuel from [employer]. Thrive Questionnaire Date Thrive assessed: 05/02/24 I am a: Patient What is your living situation today?: I have a steady place to live Within the past 12 months, did the food you bought not last and you didn't have the money to get more?: I choose not to answer this question Within the past 12 months, did you worry whether your food would run out before you got money to buy more?: I choose not to answer this question Do you have trouble paying for medicines?: I choose not to answer this question Do you have trouble getting transportation to medical appointments?: I choose not to answer this question Do you have trouble paying your heating and electricity bill?: I choose not to answer this question Do you have trouble taking care of your child, family member or friend?: I choose not to answer this question Do you have trouble with day-to-day activities such as bathing, preparing meals, shopping, managing finances, etc.?: I choose not to answer this question Are you currently unemployed and looking for a job?: I choose not to answer this question Are you interested in more education?: I choose not to answer this question Please select the resources that you would like help with: None Currently or been in a relationship where the following occur: No concerns reported THRIVE Score: 0 AUDIT C Alcohol Use Questionnaire (AUDIT-C) 1. How often do you have a drink containing alcohol?: Never 3. How often do you have six or more drinks on one occasion?: Never Total Score: 0 Score Reviewed/Action Taken: No BABITA-7 AMB Questionnaire BABITA-7 Date BABITA - 7 assessed: 05/02/24 Feeling nervous, anxious, or on edge: 1 = Several days Not being able to stop or control worryin = Not at all Worrying too much about different things: 0 = Not at all Trouble relaxin = Not at all Being so restless that it is hard to sit still: 0 = Not at all Becoming easily annoyed or irritable: 0 = Not at all Feeling afraid as if something awful might happen: 0 = Not at all Total BABITA-7 score (0-4 normal; 5-9 mild; 10-14 moderate; 15-21 severe): 1 Source: Developed by Drs. Tyler Peters, Tiera Frederick, Rishi Teran and colleagues, with an educational jose manuel from [employer]. BABITA-7 Assessment Billing BABITA-7 Assessment Tool: BABITA-7 Assessment 23613 Physical exam (Primary Care) Vital Signs: Last Vital Signs Pulse 65 05/02/24 09:08 Resp 12 05/02/24 09:08 BP 146/80 H 05/02/24 09:08 Pulse Ox 96 05/02/24 09:08 Oxygen Delivery Method Room Air 05/02/24 09:08 BMI result Body Mass Index 40.6 Tobacco/Smoking Status: Tobacco use Status Tobacco use date assessed 05/02/24 05/02/24 09:17 Patient Tobacco Use Status Former Tobacco user 05/02/24 09:06 e-Cigarette/Vaping Use Never Used 05/02/24 09:06 PHQ-9: PHQ-9 Score PHQ-9: Total score 0 05/02/24 09:20 Depression Screening Interpretation: Negative (neg) Thrive Assessment: Date of Thrive Assessment Date Thrive assessed 05/02/24 05/02/24 09:20 Currently or been in a relationship where the following occur: No concerns reported Assessment and Plan Assessment & Plan (1) Osteoarthritis of right knee: Code(s): M17.11 - Unilateral primary osteoarthritis, right knee Qualifiers: Osteoarthritis type: primary Qualified Code(s): M17.11 - Unilateral primary osteoarthritis, right knee (2) Right knee pain: Code(s): M25.561 - Pain in right knee Qualifiers: Chronicity: chronic Qualified Code(s): M25.561 - Pain in right knee; G89.29 - Other chronic pain (3) Essential hypertension: Code(s): I10 - Essential (primary) hypertension Plan: Borderline in office. Controlled at home (4) Hypothyroidism (acquired): Code(s): E03.9 - Hypothyroidism, unspecified Plan: Has been clinically and biochemically euthyroid on current dose of medication Orders: Orders Comprehensive Met. Panel Today E03.9 - Hypothyroidism, unspecified, I10 - Essential (primary) hypertension, Z13.220 - Encounter for screening for lipoid disorders TSH reflex Free T4 Today E03.9 - Hypothyroidism, unspecified, I10 - Essential (primary) hypertension, Z13.220 - Encounter for screening for lipoid disorders Hemoglobin A1c Today E03.9 - Hypothyroidism, unspecified, I10 - Essential (primary) hypertension, Z13.220 - Encounter for screening for lipoid disorders Lipid Panel Today Z13.220 - Encounter for screening for lipoid disorders Medications: New meloxicam 15 mg PO DAILY 90 tabs 3RF Refilled atenolol 100 mg PO QAM 90 tabs 3RF levothyroxine 100 mcg PO DAILY 90 days 90 tabs 3RF E03.9 - Hypothyroidism, unspecified Coding Level of Care Code Est Pt Level 5 (32534) Diagnoses Primary osteoarthritis of right knee M17.11 Osteoarthritis type: primary Chronic pain of right knee M25.561; G89.29 Chronicity: chronic Essential hypertension I10 Hypothyroidism (acquired) E03.9 Additional Codes BABITA-7 Assessment Billing - BABITA-7 Assessment Tool: BABITA-7 Assessment 82067 ([id number]) Time Spent (min) 47
[2024-05-02 09:08] VITALS: BP 146/80; PULSE 65; RESP 12; O2SAT 96; BMI 40.6
== END 2024-05-02 10:01 | disposition home or self-care (01) ==
PROVIDERS: PCP Internal Medicine; Visit Provider Internal Medicine
DX: M17.11 Unilateral primary osteoarthritis, right knee (principal); M25.561 Pain in right knee; G89.29 Other chronic pain; I10 Essential (primary) hypertension; E03.9 Hypothyroidism, unspecified
CPT/HCPCS: 99215